=== PATIENT | male | born 1980 | race Caucasian/White ===

== ENCOUNTER 2021-01-21 21:09 | Emergency (ER) | payer SELFPAY ==
--- NOTE | 2021-01-21 21:53 | EDM.PDOC ---
ED HPI GENERAL MEDICAL PROBLEM - General Chief Complaint: ENT Problem Stated Complaint: SORE THROAT/SWOLLEN LYMPH GLANDS Time Seen by Provider: 01/21/21 21:45 - History of Present Illness INITIAL COMMENTS - FREE TEXT/NARRATIVE: 40-year-old male presents the emergency room with a sore throat. This is been getting worse over the last several days. He is not aware of any fevers or chills but is having a hard time swallowing even water secretions.. He is clearing his swallowing and talking is very uncomfortable. He has been using ibuprofen for this and initially it was helping but it stopped working. He has not had any nausea or vomiting. He is not aware of any fevers or chills. Patient does not have any significant past medical problems and he enjoys good health he is not on any routine medications. Throat Pain Score (Numeric/FACES): 7 - Related Data Allergies Allergy/AdvReac Type Severity Reaction Status Date / Time No Known Allergies Allergy Verified 01/21/21 21:47 Home Meds: Home Meds Amoxicillin/Potassium Clav [Augmentin 875-125 Tablet] 1 each PO BID #20 tablet 01/22/21 [Rx] ED ROS GENERAL - Review of Systems Review Of Systems: See Below Constitutional: Reports: No Symptoms HEENT: Reports: Throat Pain, Throat Swelling. Denies: Dental Pain, Ear Pain, Nose Pain Respiratory: Reports: No Symptoms Cardiovascular: Reports: No Symptoms GI/Abdominal: Reports: No Symptoms : Reports: No Symptoms Musculoskeletal: Reports: No Symptoms Skin: Reports: No Symptoms Neurological: Reports: No Symptoms ED EXAM, GENERAL - Physical Exam Exam: See Below Exam Limited By: No Limitations General Appearance: Alert, No Apparent Distress Eye Exam: Bilateral Eye: Normal Inspection Ears: Normal External Exam, Normal Canal, Hearing Grossly Normal, Normal TMs Nose: Normal Inspection, Normal Mucosa, No Blood Throat/Mouth: Other (All structures in the posterior pharynx are significantly swollen he is not however in any respiratory distress). No: Normal Inspection, Normal Oropharynx (Difficult to visualize), Normal Voice Head: Atraumatic, Normocephalic Neck: Supple, Full Range of Motion, Other (Examination of his neck and airway is very difficult and extremely limited with the swelling he is demonstrating.). No: Normal Inspection (Diffuse swelling and tenderness with palpation), Non- Tender Respiratory/Chest: No Respiratory Distress, Lungs Clear, Normal Breath Sounds. No: Stridor Cardiovascular: Regular Rate, Rhythm, No Edema, No Murmur GI/Abdominal: Normal Bowel Sounds, Soft, Non-Tender Course - Vital Signs Last Recorded V/S: Last Vital Signs Temp 36.6 C 01/21/21 21:42 Pulse 78 01/21/21 21:42 Resp 18 01/21/21 21:42 BP 119/75 01/21/21 21:42 Pulse Ox 98 01/21/21 21:42 - Orders/Labs/Meds Orders: Active Orders 24 hr Category Date Time Status Soft Tissue Neck w Cont [CT] Stat Exams 01/21/21 21:54 Taken Labs: Laboratory Tests 01/21/21 01/21/21 01/21/21 Range/Units 22:13 22:13 22:13 WBC 11.53 H (4.23-9.07) K/mm3 RBC 4.96 (4.63-6.08) M/mm3 Hgb 15.0 (13.7-17.5) gm/dl Hct 41.8 (40.1-51.0) % MCV 84.3 (79.0-92.2) fl MCH 30.2 (25.7-32.2) pg MCHC 35.9 H (32.2-35.5) g/dl RDW Std Deviation 38.9 (35.1-43.9) fL Plt Count 261 (163-337) K/mm3 MPV 9.5 (9.4-12.3) fl Neutrophils % (Manual) 59 (40-60) % Band Neutrophils % 0 (0-10) % Lymphocytes % (Manual) 28 (20-40) % Atypical Lymphs % 4 % Monocytes % (Manual) 9 (2-10) % Eosinophils % (Manual) 0 L (0.8-7.0) % Basophils % (Manual) 0 L (0.2-1.2) Platelet Estimate Adequate RBC Morph Comment Normal Sodium 139 (136-145) mEq/L Potassium 3.8 (3.5-5.1) mEq/L Chloride 104 (98-107) mEq/L Carbon Dioxide 25 (21-32) mEq/L Anion Gap 13.8 (5-15) BUN 12 (7-18) mg/dL Creatinine 1.1 (0.7-1.3) mg/dL Est Cr Clr Drug Dosing 98.87 mL/min Estimated GFR (MDRD) > 60 (>60) mL/min BUN/Creatinine Ratio 10.9 L (14-18) Glucose 84 (70-99) mg/dL Calcium 9.1 (8.5-10.1) mg/dL Total Bilirubin 1.2 H (0.2-1.0) mg/dL AST 12 L (15-37) U/L ALT 22 (16-63) U/L Alkaline Phosphatase 64 (46-116) U/L Total Protein 7.5 (6.4-8.2) g/dl Albumin 4.0 (3.4-5.0) g/dl Globulin 3.5 gm/dL Albumin/Globulin Ratio 1.1 (1-2) Monoscreen Negative (NEGATIVE) SARS-CoV-2 RNA (TEMO) (NEGATIVE) Group A Strep (PCR) (NOT DETECT) 01/21/21 01/21/21 Range/Units 22:13 22:13 WBC (4.23-9.07) K/mm3 RBC (4.63-6.08) M/mm3 Hgb (13.7-17.5) gm/dl Hct (40.1-51.0) % MCV (79.0-92.2) fl MCH (25.7-32.2) pg MCHC (32.2-35.5) g/dl RDW Std Deviation (35.1-43.9) fL Plt Count (163-337) K/mm3 MPV (9.4-12.3) fl Neutrophils % (Manual) (40-60) % Band Neutrophils % (0-10) % Lymphocytes % (Manual) (20-40) % Atypical Lymphs % % Monocytes % (Manual) (2-10) % Eosinophils % (Manual) (0.8-7.0) % Basophils % (Manual) (0.2-1.2) Platelet Estimate RBC Morph Comment Sodium (136-145) mEq/L Potassium (3.5-5.1) mEq/L Chloride (98-107) mEq/L Carbon Dioxide (21-32) mEq/L Anion Gap (5-15) BUN (7-18) mg/dL Creatinine (0.7-1.3) mg/dL Est Cr Clr Drug Dosing mL/min Estimated GFR (MDRD) (>60) mL/min BUN/Creatinine Ratio (14-18) Glucose (70-99) mg/dL Calcium (8.5-10.1) mg/dL Total Bilirubin (0.2-1.0) mg/dL AST (15-37) U/L ALT (16-63) U/L Alkaline Phosphatase (46-116) U/L Total Protein (6.4-8.2) g/dl Albumin (3.4-5.0) g/dl Globulin gm/dL Albumin/Globulin Ratio (1-2) Monoscreen (NEGATIVE) SARS-CoV-2 RNA (TEMO) Negative (NEGATIVE) Group A Strep (PCR) Not detected (NOT DETECT) Meds: Medications Discontinued Medications Generic Name Dose Route Start Last Admin Trade Name Freq PRN Reason Stop Dose Admin Ampicillin Sodium/Sulbactam 100 mls @ 200 mls/hr 01/21/21 21:56 01/21/21 22:22 Sodium 3 gm/ Sodium Chloride IV 01/21/21 22:25 200 mls/hr ONETIME ONE Administration Methylprednisolone Sodium Succinate 125 mg 01/21/21 21:58 01/21/21 22:22 Methylprednisolone Sodium Succinate 125 Mg/2 Ml Sdv IVPUSH 01/21/21 21:59 125 mg ONETIME ONE Administration - Re-Assessments/Exams Free Text/Narrative Re-Assessment/Exam: 01/22/21 00:[address] Campo in the emergency room at [facility] his recommendation is he does not drain these but to run it by on-call ENT. At present time I am on hold for Dr. Mcdonnell. They have had a hard time reaching her and they will call me back when they do. 01/22/21 01:[address] Mcdonnell her recommendation was not I&D but oral antibiotics. He is not toxic he is afebrile. She concurs with Augmentin twice daily. Dr. Mcdonnell advised against steroids. I have discussed this with the patient and his they are eager to try this. 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 Departure - Departure Time of Disposition: 01:15 Disposition: Home, Self-Care 01 Clinical Impression: Peritonsillar abscess - Discharge Information Referrals: Tran Marquez NP [Primary Care Provider] - Forms: ED Department Discharge Additional Instructions: Return to the emergency room with any questions problems or worsening symptoms. Follow-up with your regular healthcare provider early this next week for recheck. You have been started on Augmentin this is an antibiotic take 1 twice daily until all gone. Motrin and/or Tylenol as needed for discomfort. Your case was discussed with Dr. Mcdonnell, brush clearer surveying in [place]. You can follow-up with her if needed [phone] Sepsis Event Note (ED) - Focused Exam Vital Signs: Vital Signs Temp Pulse Resp BP Pulse Ox 01/21/21 21:42 36.6 C 78 18 119/75 98 - My Orders Last 24 Hours: My Active Orders 01/21/21 21:54 Soft Tissue Neck w Cont [CT] Stat - Assessment/Plan Last 24 Hours: My Active Orders 01/21/21 21:54 Soft Tissue Neck w Cont [CT] Stat
[2021-01-21] MEDS ORDERED: Ampicillin/Sulbactam Na 3 GM in Sodium Chloride 0.9% 100 ML IV ONE (21:56)
[2021-01-21] MEDS ORDERED: methylPREDNISolone Sodium Succinate 125 MG/2 ML SDV IVPUSH ONE (21:58)
[2021-01-22] MEDS ORDERED: Amoxicillin/Clavulanate K 875-125 MG Tab PO ONE (01:11)
--- NOTE | 2021-01-22 07:33 | CT ---
CT neck Technique: Multiple axial sections through the neck were obtained. Reconstructed coronal and sagittal images were obtained. Comparison: No prior neck exam is available. Findings: Soft tissue swelling is seen within the right peritonsillar region which contains a low density finding measuring 2.1 cm which is compatible with a peritonsillar abscess. This causes mild midline shift of the hypopharynx to the left side. Prevertebral soft tissues are normal. Epiglottis is normal. Paranasal sinuses show nothing acute. Parotid salivary glands and submandibular salivary glands appear within normal limits. Visualized lung apices are normal. No adenopathy is appreciated. Bone window settings were reviewed which show minimal degenerative change within the cervical spine. No acute osseous abnormality is appreciated. Impression: 1. Findings compatible with right-sided tonsillar abscess which causes mass-effect upon the hypopharynx with left-sided displacement of the hypopharynx. 2. No additional abnormality is seen on CT study of the neck. Diagnostic code #5 I agree with preliminary report from [facility], finalized on 01/22/21, 1:18 AM CDT, code 1
== END 2021-01-22 01:34 | disposition home or self-care (01) ==
LOC: JD.ED 21:09
DX: J36 Peritonsillar abscess (principal); Z20.822 Contact with and (suspected) exposure to COVID-19
CPT/HCPCS: 36415; 70491; 80053; 85007; 85027; 86308; 87635; 87651; 96365; 96375; 99283; A9270; J0295; J2930; U0002